=== PATIENT | female | born 1995 | race Caucasian/White ===

== ENCOUNTER 2023-05-08 14:12 | Outpatient (OUT) | payer MEDICAID, SELFPAY ==
--- NOTE | 2023-05-08 | XR_ITS ---
[facility] [place] [id number] Patient Name: CHARY HDEZ MRN: [id number] date: 1995 Sex: F Assigned Patient Location: [facility] Current Patient Location: Accession/Order Number: [id number] Exam Date: 05/08/2023 14:35 Report Date: 05/10/2023 18:12 At the request of: MATHEW PHELPS Procedure: XR foot LT min 3V EXAM: XR foot LT min 3V HISTORY: LEFT FOOT F/U IMAGING COMPARISON: 04/13/2023 FINDINGS/IMPRESSION: 1. Oblique fracture of the fifth metatarsal with mild displacement, alignment similar as compared to the prior exam from 04/13/2023. 2. No significant joint degeneration. 3. No ankle joint effusion. Electronically authenticated by: CASSIE SEXTON Date: 05/10/2023 18:12
--- OUTSIDE RECORDS SUMMARY | 2023-05-08 14:25 | XMS_ITS | CCD ---
Author Name Unknown Address [address] [place] [address] Organization [facility] Providers Care Library Media Specialist Name Role Phone CAMILLE, DR WISE Consulting Unavailable KARASIK, DR WISE Attending Unavailable KARASIK, DR WISE Admitting Unavailable REQUEST, DR ADRIAN LISTED Primary Care Unavaila ble SCOTT, DR DELANEY Coulter Attending Unavailable SCOTT, DR DELANEY Coulter Admitting Unavailable SCOTT, DR DELANEY Coulter Consulting Unavailable MISC, DR LAKE Primary Care Unavailable SCOTT, DR DELANEY Coulter Attending Unavailable SCOTT, DR DELANEY Coulter Admitting Unavailable SCOTT, DR DELANEY Coulter Consulting Unavailable MISC, DR LAKE Primary Care Unavailable KARASIK, DR WISE Procedure Practitioner Unava ilable KARASIK, DR WISE Consulting Unavailable KARASIK, DR WISE Attending Unavailable SHAYY THOMAS Admitting Unavailable MISC, DR LAKE Primary Care Unavailable ROMIE, DR JEREZ Consulting Unavailable AGUBOSIMIKE Consulting Unavailable PAY, DR BUENO Admitting Unavailable PAY, DR BUENO Attending Unavailable MISC, DR LAKE Primary Care Unavailable KARASIK, DR WISE Admitting Unavailable KARASIK, DR WISE Consulting Unavailable KARASIK, DR WISE Attending Unavailable REQUEST, DR ADRIAN LISTED Primary Care Unavaila BETTY Schaffer Attending Unavailable BETTY MARTIN Admitting Unavailable WEST, DR HEATHER Rob Consulting Unavailable MISC, DR LAKE Primary Care Unavailable BETTY MARTIN Consulting Unavailable MISC, DR LAKE Primary Care Unavailable MEHUL MORSE Attending Unavailable MEHUL MORSE Admitting Unavailable ANATOLY, DR HEATHER Rob Consulting Unavailable MEHUL MORSE Consulting Unavailable MEHUL MORSE Attending Unavailable MEHUL MORSE Admitting Unavailable ANATOLY, DR HEATHER Rob Consulting Unavailable MISC, DR LAKE Primary Care Unavailable MEHUL MORSE Consulting Unavailable NONE, XXXX Primary Care Physician Unavailab Tyler Roman Attending Unavailable Allergies Allergy Classification Reported Allergen(s) Allergy Type Date of Onset Reaction(s) Facility (1 source) No Known Medication Allergies; Translations: [No Known Medication Allergies] Propensity to adverse reactions (disorder) [facility] Repository Problems Active Problems Problem Classification Problem Date Documented Date Episodic/Chronic Fracture of lower limb (9 sources) Unspecified fracture of left toe(s), initial encounter for closed fracture; Translations: [Displaced fracture of distal phalanx of left great toe, initial encounter for closed fracture] Onset: 12-22-2020 Episodic Substance-related disorders (2 sources) Nicotine dependence, cigarettes, uncomplicated; Translations: [Smoker] Onset: 10-16-2020 04-13-2023 Chronic Comment on above: Added secondary to d ocumentation in Social History. Unclassified (4 sources) CONTACT W/AND (SUSP) EXPOS COVID-19; Translations: [CONTACT W/AND (SUSP) EXPOS COVID-19] Onset: 10-16-2020 Past or Other Problems Problem Classification Problem Date Documented Date Episodic/Chronic Immunizations and screening for infectious disease (1 source) Encounter for screening for infections with a predominantly sexual mode of transmission; Translations: [ENC SCREEN INFECTIONS SEXL TRANSMS] Onset: 09-18-2020 Episodic Other complications of ; puerperium affecting management of mother (1 source) Smoking (tobacco) complicating childbirth; Translations: [SMOKING TOBACCO COMP CHILDBIRTH] Onset: 10-16-2020 Episodic Other female genital disorders (1 source) Other specified noninflammatory disorders of vagina; Translations: [OTH SPEC NONINFLAMMATORY D/O VAGINA] Onset: 09-18-2020 Episodic Other and delivery including normal (3 sources) Encounter for supervision of normal , unspecified, third trimester; Translations: [Single live ] Onset: 10-05-2020 Episodic Other screening for suspected conditions (not mental disorders or infectious disease) (8 sources) Encounter for screening for Streptococcus B; Translations: [Encounter for screening for diabetes mellitus] Onset: 07-07-2020 Episodic Residual codes; unclassified (4 sources) Procedure and treatment not carried out due to patient leaving prior to being seen by health care provider; Translations: [PROC AND TX NOT CARRIED OUT PT LEAVE] Onset: 12-22-2020 Episodic Residual codes; unclassified (1 source) 39 weeks gestation of ; Translations: [39 WEEKS GESTATION OF ] Onset: 10-16-2020 Episodic Unclassified (1 source) CONTACT W/AND (SUSP) EXPOS COVID-19; Translations: [CONTACT W/AND (SUSP) EXPOS COVID-19] Onset: 05-23-2021 Results Test Name Value Interpretation Reference Range Facil ity ED Note-Physicianon 04-24-20 ED Note-Physician Basic Information Time Seen: Kamar FLORES, Perez Fisher 04/13/2023 18:47 Chief Complaint left foot pain from fall. using crutches History of Present Illness A 28-year-old female reports to the emergency department with chief complaint of left foot pain. Reports that she thinks that she broke her foot. Reports that she was playing with her kids, and fell on to her left foot, and her body weight fell on it. States that she did have a walk on it. Reports to have about 630 this evening. Denies any fevers chills nausea or vomiting. States he has not taken anything for pain. Cannot place weight on it. Is using crutches. Review of Systems A 10 point review of systems is negative except as noted above. Medical and Surgical History: Reviewed and noted Social history: Lives at home Family History: Reviewed. Tobacco: Denies Physical Exam Vitals & Measurements T: 36.8 ?C(Oral) HR: 96(Peripheral) RR: 18 BP: 130/82 SpO2: 97% HT: 160.02 cm WT: 70 kg BMI: 27.34 General: The patient appears well and in no apparent distress. Patient is resting comfortably in chair. Afebrile Skin: Warm, dry, no pallor noted. Ecchymosis located on the lateral aspect of the left foot. Head: Normocephalic, atraumatic Neck: No JVD Eye: PERRLA, EOMI ENT: Moist mucus membranes Cardiovascular: Regular rate normal peripheral perfusion. Pedal pulses +2 bilaterally. Cap refill is brisk. Respiratory: No respiratory distress no accessory muscle use no obvious audible wheezing Chest Wall: no deformity Musculoskeletal: Limited range of motion of left foot due to pain. There is tenderness along the fourth and fifth metatarsal aspect of the left foot. GI: No obvious distention Neurological: A&O moves all extremities equal strength and symmetry Psychiatric: Cooperative and appropriate Medical Decision Making MEDICAL DECISION MAKING Number and Complexity of Problems Differential Diagnosis: [] MDM Data External documents reviewed: [] My EKG interpretation: [] My CT interpretation: [] My X-ray interpretation: Reviewed My Ultrasound interpretation: [] Decision rules/scores evaluated: [] Discussed with: [] Treatment and Disposition ED Course: 28-year-old female reports to the emergency department with chief complaint of a fall, and foot pain. Reports that she was playing with her kids, when she fell onto her left foot. Denies any other injury. Reports patient having to walk on it. Believes that she broke her foot. On physical exam left foot is neurovascularly intact distally. Tenderness located on the fourth and fifth metatarsal bones. Due to concerns we did do an x-ray. X-ray was positive for fracture of fifth metatarsal bone. Due to this, patient was placed in a postop shoe. She did have crutches that she was always using. Discussed ultimately she needs follow-up with podiatry. Patient was understanding. Continue to rest, ice, compress, and elevate your affected joint to relieve inflammation and swelling. You may also take ibuprofen and Tylenol to help with pain. Follow-up with your primary care provider in 3 to 5 days. If symptoms worsen, do not improve, or new symptoms arise please report back to emergency department for further evaluation. The patient was understanding and agreeable to plan moving forward. Shared decision making: [] Code status: [] Assessment/Plan Fracture of fifth metatarsal bone of left foot (S92.352A: Displaced fracture of fifth metatarsal bone, left foot, initial encounter for closed fracture) Orders: ibuprofen, 800 mg = 1 tab(s), Tab, Oral, Once, Stop date 04/13/23 19:21:00 EST, STAT, Start date 04/13/23 19:21:00 EST, 04/13/23 19:21:00 EST Apply Post-Op Shoe XR Ankle 3+ Views Left XR Foot 3+ Views Left Medications Administered Given ibuprofen 800 mg Tab, 800 mg, Oral Disposition Plan Patient Discharge Condition Stable Discharge Disposition To home Discharge Prescription List Prescriptions No active prescription medications Follow-up With When Contact Information Aurelio Solares In 3 days 04/16/2023 EST [facility] [address] [place] [address]- [facility]: c/o [address] [place] [address]- Additional Instructions: You may follow-up with podiatry for further evaluation of your left foot fracture. Continue to be nonweightbearing. Continue to rest, ice, compress, and elevate your affected joint to relieve inflammation and swelling. You may also take ibuprofen and Tylenol to help with pain. Patient Education Metatarsal Fracture Rehab Metatarsal Fracture Attestation Patient seen and evaluated by the physician drafter assistant. Attending physician was present in the emergency department and supervised care. This visit was performed by both the physician and an APC. I performed all aspects of the MDM as documented. This report was transcribed using voice (more content not included)... [facility] Comment on above: Result Comment: Elec tronically Signed By: Perez Galvin PA-C\.br\Date and Time Signed: 04/13/23 21:29 EST\.br\Electronically Co-Signed By: Armaan Catherine MD\.br\Date and Time Co-Signed: 04/24/23 07:43 EST XR Ankle 3+ Views Lefton XR Ankle 3+ Views Left Exam Date/Time: 04/13/2023 19:47 EST Reason for Exam: Fall Report IMPRESSION: NO EVIDENCE OF A FRACTURE OR OTHER BONE ABNORMALITY IN THE LEFT ANKLE. CLINICAL HISTORY: Fall COMPARISON: None available. FINDINGS: AP, lateral and oblique views of the left ankle demonstrates no fracture, dislocation or other bone abnormality. Ordering Provider: Perez Galvin FINAL REPORT Dictated: 04/14/2023 9:00 am Micheal Mackey MD Signed (Electronic Signature): 04/14/2023 9:00 am Signed by: Micheal Mackey MD Transcribed by: JEFFREY Technologist: VIKY Technical Comments Radiation Dose: Ka,r in mGy = n/a DAP = n/a [facility] XR Foot 3+ Views Lefton XR Foot 3+ Views Left Exam Date/Time: 04/13/2023 19:47 EST Reason for Exam: Fall Report IMPRESSION: COMPLETE FRACTURE, LEFT FIFTH METATARSAL. CLINICAL HISTORY: Fall COMPARISON: None available. FINDINGS: AP, lateral and oblique views of the left foot. Complete, oblique, minimally displaced, extra-articular fracture left fifth mid metatarsal. Mild hammertoe deformity, second through fifth digits. Ordering Provider: Perez Galvin FINAL REPORT Dictated: 04/14/2023 9:00 am Micheal Mackey MD Signed (Electronic Signature): 04/14/2023 9:00 am Signed by: Micheal Makcey MD Transcribed by: JEFFREY Technologist: VIKY Technical Comments Radiation Dose: Ka,r in mGy = n/a DAP = n/a Normal [facility] Consent for Treatmenton Consent for Treatment [id number] .[id number] Normal [facility] Discharge Instructionson Discharge Instructions [id number] .[id number] Normal [facility] ED Clinical Summaryon 2022 ED Clinical Summary [place] [id number] ED Clinical Summary Person Information Name: CHARY HDEZ/[facility] Age: 28 Years : 1995 Sex: Female Language: Nigerian PCP: NONE, XXXX Marital Status: Single Phone: [phone] Visit Id: Visit Reason: Foot injury - Minor; LEFT FT - POSSIBLE FRACTURE Speciality: Acuity: 4 Enc Type: Emergency Med Service: Emergency Arrival: 04/13/2023 18:39:59 Discharge: 04/13/2023 20:17:57 LOS: 000 01:38 Checkin: 04/13/2023 18:39:59 Checkout: 04/13/2023 20:17:57 Dispo Type: Home (Routine DC) EVENTS: Event Name Event Status Request Date/Time Start Date/Time Complete Date/Time Arrive Complete 04/13/2023 18:39:59 04/13/2023 18:39:59 04/13/2023 18:39:59 Document Home Meds Request 04/13/2023 18:39:59 Triage Complete 04/13/2023 18:39:59 04/13/2023 18:54:39 04/13/2023 18:54:39 Dr Exam Complete 04/13/2023 18:47:44 04/13/2023 18:47:44 04/13/2023 18:47:44 Registration Complete 04/13/2023 18:47:44 04/13/2023 18:50:10 04/13/2023 19:25:22 Bed Assign Complete 04/13/2023 18:50:10 04/13/2023 18:50:10 04/13/2023 18:50:10 RN Exam Complete 04/13/2023 18:50:10 04/13/2023 18:53:39 04/13/2023 18:53:39 Dr Exam Complete 04/13/2023 18:57:24 04/13/2023 18:57:24 04/13/2023 18:57:24 X-Ray Complete 04/13/2023 19:02:47 04/13/2023 19:14:54 04/13/2023 19:47:06 X-Ray Complete 04/13/2023 19:03:17 04/13/2023 19:14:54 04/13/2023 19:47:06 Meds Admin Complete 04/13/2023 19:21:21 04/13/2023 19:31:18 Reg Complete Request 04/13/2023 19:25:22 Reg Bed Request Complete 04/13/2023 19:25:22 04/13/2023 19:25:22 04/13/2023 19:25:22 Wet Read Request 04/13/2023 19:47:06 Patient Care Request 04/13/2023 20:02:49 Discharge Complete 04/13/2023 20:03:53 04/13/2023 20:18:04 04/13/2023 20:18:04 Transfer Complete 04/13/2023 20:18:04 04/13/2023 20:18:04 04/13/2023 20:18:04 ADDRESS: [place] [phone] PHYS DOC NOTES: MEDICAL INFORMATION: Prescriptions Given: PATIENT EDUCATION INFORMATION: Instructions: Metatarsal Fracture Rehab; Metatarsal Fracture Follow up: With: Address: When: Aurelio Solares [facility], [address] [place] [address] [facility]/o [facility], [address] [place] [address], [place] [address] In 3 days 04/16/2023 Comments: You may follow-up with podiatry for further evaluation of your left foot fracture. Continue to be nonweightbearing. Continue to rest, ice, compress, and elevate your affected joint to relieve inflammation and swelling. You may also take ibuprofen and Tylenol to help with pain. DIAGNOSIS: Fracture of fifth metatarsal bone of left foot Normal [facility] ED Patient Education Noteon 04-13-2023 ED Patient Education Note Orthopedics Metatarsal Fracture Rehab After you break one of the long bones in your foot (metatarsal fracture), it is important to regain your flexibility, coordination, strength, and balance. This is especially important if you had a cast or boot. Ask your health care provider or physical therapist when you can start doing exercises at home. If doing any of these exercises causes pain, stop and contact your health care provider or physical therapist. Stretching exercises Exercise A: towel stretch 1. Sit on the floor with your legs straight out in front of you. 2. Loop a towel around the ball of your injured foot. 3. Use both hands to pull the ends of the towel, stretching your toes and foot toward your body. You should feel a stretch in the muscle in the back of your lower leg (calf). 4. Hold the stretch for 30 seconds. 5. Repeat times. Complete this exercise times a day. Exercise B: ankle alphabets 1. Sit with your injured foot raised off the ground (elevated). You can support your leg on pillows or on a footstool. Make sure your foot has room to move freely. 2. Move your injured foot to trace each letter of the alphabet in the air. Keep your hip and knee still. Make the letters as large as you can without pain. 3. Go through all of the letters from A to Z. 4. Repeat times. Complete this exercise times a day. Exercise C: calf stretch 1. Stand with both hands against a wall for support. 2. Bring your injured foot out straight behind you. Keep the front leg bent at the knee. 3. Keep the knee of your back leg straight and keep your heel on the floor. 4. Shift your weight toward the wall, making sure to keep the heel of your back leg down on the floor. You should feel a stretch in the calf of your back leg. 5. Hold the stretch for 30 seconds. 6. Repeat times. Complete this exercise times a day. You can also do this exercise with the knee of your back leg slightly bent for a deep calf stretch. Repeat the same steps but with your knee bent. Strengthening exercises Exercise A: marble pickup 1. Sit in a chair. Put 20 marbles on the floor in front of you. Put a bowl or cup on the floor near the marbles. 2. Use the toes of your injured foot to strip picker each marble one by one and place them in the bowl or cup. 3. Repeat times. Complete this exercise times a day. If you have only one marble, place two washcloths on the floor and move the marble between the washcloths. Exercise B: towel curls 1. Sit in a chair and place a small towel on the floor in front of you. 2. Use the toes of your injured foot to grab the towel and pull it toward you. Keep going until you have pulled the whole towel under your foot. 3. Repeat times. Complete this exercise times a day. To make this exercise more difficult, put a small weight, such as a filled water bottle or can of food, at the far end of the towel. Exercise C: resistance band calf strengthening 1. Sit on the floor or on your bed with your legs straight out in front of you. 2. Loop a resistance band around the ball of your injured foot. 3. Hold the free ends of the band with both hands. 4. Push down on the band with your foot, away from your body. Slowly release. 5. Repeat times. Complete this exercise times a day. Exercise D: resistance band samuel strengthening 1. Sit in a chair with your feet flat on the floor. 2. Loop a resistance band around your injured foot, just below your toes. 3. Bring the loose ends toward your other foot. Pull the band tight and step on it with your non-injured foot to hold it. 4. Keeping your heel down, lift your injured toes and foot up toward your samuel. Slowly release. 5. Repeat times. Complete this exercise times a day. Exercise E: calf raises 1. Stand behind a chair or at your countertop and use your hands to support you. 2. Lift up onto your toes and then slowly lower back down. 3. Repeat times. Complete this exercise times a day. To increase difficulty, lift your non-injured foot off the ground and rise up just on your injured foot. You can also perform this exercise with your toes and the ball of your foot on a step, with your heels over the step. Lift and lower as far as you can without pain. Balance exercises Exercise A: single leg stand 1. Stand close to a countertop or doorframe to hold onto if needed. Stand only on your injured foot. Don't let your big toe lift. 2. Hold this position for as long as you can. Repeat until you reach minutes total. To increase difficulty, close your eyes or stand on a soft surface like a pillow or couch cushion. Exercise B: star taps 1. Stand close to a countertop to hold onto if needed. Stand only on your (more content not included)... Normal [facility] ED Patient Summaryon 023 ED Patient Summary [address] [address] Patient Discharge Instructions Person Information Name: CHARY HDEZ Age: 28 Years Arrival Date: 04/13/2023 18:39:59 Discharge Diagnosis: Fracture of fifth metatarsal bone of left foot Primary Care Physician: NONE, XXXX Provider Information Primary Provider: Tyler Qiu DO Advanced Abatement Worker:Kaitlyn The exam and treatment you received in the Emergency Department were for an urgent problem and are not intended as complete care. It is important that you follow up with a doctor, nurse practitioner, or physician?s drafter assistant for ongoing care. If your symptoms become worse or you do not improve as expected and you are unable to reach your usual health care provider, you should return to the Emergency Department. We are available 24 hours a day. CHARY HDEZ has been given the following list of patient education materials, prescriptions and follow-up instructions: Follow-up Instructions: With: Address: When: Aurelio Solares [facility], [address] [place] [address], [place] [address] [facility]: c/o [facility], [address] [place] [address], [place] [address] In 3 days 04/16/2023 Comments: You may follow-up with podiatry for further evaluation of your left foot fracture. Continue to be nonweightbearing. Continue to rest, ice, compress, and elevate your affected joint to relieve inflammation and swelling. You may also take ibuprofen and Tylenol to help with pain. In the event that this physician does not participate in your insurance network, please consult with your insurance company to find a nearby participating provider. Patient Education Materials: Metatarsal Fracture Rehab; Metatarsal Fracture A MESSAGE TO ALL PATIENTS REGARDING OPIOIDS PRESCRIPTION OPIOIDS: WHAT YOU NEED TO KNOW Prescription opioids can be used to help relieve rvvokguq-ml-eyuaia pain and are often prescribed following a surgery or injury, or for certain health conditions. These medications can be an important part of the treatment but also come with serious risks. It is important to work with your healthcare provider to make sure you are getting the safest, most effective care. WHAT ARE THE RISKS AND SIDE EFFECTS OF OPIOID USE? Prescription opioids carry serious risks of addiction and overdose, especially with prolonged use. An opioid overdose, often marked by slowed breathing, can cause sudden . The use of prescription opioids can have a number of side effects as well, even when taken as directed: ? Tolerance?meaning you might need to take more of the medication for the same pain relief ? Physical dependence?meaning you have symptoms of withdrawal when a medication is stopped ? Increased sensitivity to pain ? Constipation ? Nausea, vomiting, and dry mouth ? Sleepiness and dizziness ? Confusion ? Depression ? Low levels of testosterone that can result in lower sex drive, energy, and strength ? Itching and sweating RISKS ARE GREATER WITH: ? History of drug misuse, substance use disorder, or overdose ? Mental health conditions (such as depression or anxiety) ? Sleep apnea ? Older age (65 years and older) ? Avoid alcohol while taking prescription opioids. Also, unless specifically advised by your health care provider, medications to avoid include: ? Benzodiazepines (such as Xanax or Valium) ? Muscle relaxants (such as Soma or Flexeril) ? Hypnotics (such as Ambien or Lunesta) ? Other prescription opioids KNOW YOUR OPTIONS Talk to your health care provider about ways to manage your pain that don?t involve prescription opioids. Some of these options may actually work better and have fewer risks and side effects. Options may include: ? Pain relievers such as acetaminophen, ibuprofen, and naproxen ? Some medication that are also used for depression or seizures ? Physical therapy and exercise ? Cognitive behavioral therapy, a psychological, goal-directed approach, in which patients learn how to modify physical, behavioral, and emotional triggers of pain and stress. IF YOU ARE PRESCRIBED OPIOIDS FOR PAIN: ? Never take opioids in greater amounts or more often than prescribed. ? Follow up with your primary health care provider. o Work together to create a plan on how to manage your pain. o Talk about ways to help manage your pain that don?t involve prescription opioids. o Talk about any and all concerns and side effects. ? Help prevent misuse and abuse o Never sell or share prescription opioids. o Never use another person?s prescription opioids. ? Store prescription opioids in a secure place and out of reach of others (this may include visitors, children, friends, and family). ? Safely dispose of unused prescription opioids: Find your community dr (more content not included)... Normal [facility] Covid-19 PCR (CVDTB)on 05-12 SARS-CoV-2 (COVID-19) RNA JUSTEN+probe Ql (Unsp spec) Not detected Normal NOT DETECTED [facility] Comment on above: Result Comment: This test is not yet approved or cleared by the [place] FDA. When there are no FDA-approved or cleared tests available, and other criteria are met, FDA can make tests available under an emergency access mechanism called an Emergency Use Authorization (EUA). The EUA for this test is supported by the [employer] of Health and Human Service's (HHS's) declaration that circumstances exist to justify the emergency use of in vitro diagnostics for the detection and/or diagnosis of the virus that causes COVID-19. This EUA will remain in effect (meaning this test can be used) for the duration of the COVID-19 declaration justifying emergency of IVDs, unless it is terminated or revoked by FDA (after which the test may no longer be used). When diagnostic testing is negative, the possibility of a false negative should be considered in the context of a patient's recent exposures and the presence of clinical signs and symptoms consistent with SARS-CoV-2. Performed By: #### [facility] #### [facility] [address] [place] [address] Dr. Candelaria Ivan Covid-19 PCR (CVDTB)on 02-10 SARS-CoV-2 (COVID-19) RNA JUSTEN+probe Ql (Unsp spec) Not detected Normal NOT DETECTED [facility] Comment on above: Result Comment: This test is not yet approved or cleared by the [place] FDA. When there are no FDA-approved or cleared tests available, and other criteria are met, FDA can make tests available under an emergency access mechanism called an Emergency Use Authorization (EUA). The EUA for this test is supported by the [place] of Health and Human Service's (HHS's) declaration that circumstances exist to justify the emergency use of in vitro diagnostics for the detection and/or diagnosis of the virus that causes COVID-19. This EUA will remain in effect (meaning this test can be used) for the duration of the COVID-19 declaration justifying emergency of IVDs, unless it is terminated or revoked by FDA (after which the test may no longer be used). When diagnostic testing is negative, the possibility of a false negative should be considered in the context of a patient's recent exposures and the presence of clinical signs and symptoms consistent with SARS-CoV-2. Performed By: #### C VDTB #### [facility] [address] [place] [address] Dr. Candelaria Ivan CBC AUTO DIFFon 10-06-2020 BASO # 0.1 103/ul Normal 0.0-0.1 [facility] Comment on above: Performed By: #### C BC #### [facility] [address] [place], [place] [id number] Brittany Eulalia Basophils/100 WBC (Bld) 0.4 % Normal 0.2-2.0 [facility] Comment on above: Performed By: #### C BC #### [facility] [address] [place] [address] Brittany Eulalia EO # 0.1 103/ul Normal 0.0-0.7 [facility] Comment on above: Performed By: #### C BC #### [facility] [address] [place] [address] Brittany Eulalia Eosinophils/100 WBC (Bld) 0.5 % Critically low 0.9-7.0 [facility] Comment on above: Performed By: #### C BC #### [facility] [address] [place], [place] [id number] Brittany Eulalia Erythrocyte distribution width (RBC) [Ratio] 13.2 % Normal 11.0-15.0 [facility] Comment on above: Performed By: #### C BC #### [facility] [address] [place], [place] [id number] Brittany Eulalia Hematocrit (Bld) [Volume fraction] 32.7 % Critically low 36.0-48.0 [facility] Comment on above: Performed By: #### C BC #### [facility] [address] [place] [address] Brittany Eulalia Hemoglobin (Bld) [Mass/Vol] 11.1 g/dL Critically low 12.0-16.0 [facility] Comment on above: Performed By: #### C BC #### [facility] [address] [id number] [place]anywinston Esteban IG # 0.26 10e3/ul Critically high 0.00-0.03 [facility] Comment on above: Performed By: #### C BC #### [facility] [address] [id number] Brittany Eulalia IG % 1.7 % Critically high 0.0-0.5 [facility] Comment on above: Performed By: #### C BC #### [facility] [address] [id number] Brittany Eulalia LYMPH # 2.5 103/ul Normal 1.2-3.8 [facility] Comment on above: Performed By: #### C BC #### [facility] [address] [place], [place] [id number] Brittany Esteban Lymphocytes/100 WBC (Bld) 16.7 % Critically low 20.5-60.0 [facility] Comment on above: Performed By: #### C BC #### [facility] [address] [place], [place] [id number] Brittany Esteban MANUAL DIFF REQ NO Normal [facility] Comment on above: Performed By: #### C BC #### [facility] [address] [place], [place] [address] [place]anywinston Esteban MCH (RBC) [Entitic mass] 30.9 pg Normal 26.7-34.0 [facility] Comment on above: Performed By: #### C BC #### [facility] [address] [place], [place] [id number] [place]anywinston Esteban MCHC (RBC) [Mass/Vol] 33.9 g/dL Normal 29.9-35.2 [facility] Comment on above: Performed By: #### C BC #### [facility] [address] [id number] Brittany Eulalia MCV (RBC) [Entitic vol] 91.1 fL Normal 81.0-99.0 [facility] Comment on above: Performed By: #### C BC #### [facility] [address] [place], [place] [address] Brittany Eulalia MONO # 1.1 103/ul Critically high 0.3-0.8 [facility] Comment on above: Performed By: #### C BC #### [facility] [address] [place], [place] [address] Brittany Eulalia Monocytes/100 WBC (Bld) 7.2 % Normal 1.7-12.0 [facility] Comment on above: Performed By: #### C BC #### [facility] [address] [id number] Brittany Eulalia NEUT # 11.1 103/ul Critically high 1.4-6.5 [facility] Comment on above: Performed By: #### C BC #### [facility] [address] [id number] Brittany Eulalia Neutrophils/100 WBC (Bld) 73.5 % Normal 43.0-75.0 [facility] Comment on above: Performed By: #### C BC #### [facility] [address] [place], [place] [address] Brittany Eulalia Platelet mean volume (Bld) [Entitic vol] 10.1 fL Normal 9.5-13.5 [facility] Comment on above: Performed By: #### C BC #### [facility] [address] [place], [place] [address] Brittany Eulalia PLT 157 103/ul Normal 150-450 [facility] Comment on above: Performed By: #### C BC #### [facility] [address] [id number] Brittany Eulalia RBC 3.59 106/ul Critically low 4.20-5.40 [facility] Comment on above: Performed By: #### C BC #### [facility] [address] [id number] Brittany Eulalia WBC 15.2 103/ul Critically high 4.0-11.0 [facility] Comment on above: Performed By: #### C BC #### [facility] [address] [place], [place] [address] Brittany Eulalia CBC AUTO DIFFon 10-05-2020 BASO # 0.0 103/ul Normal 0.0-0.1 [facility] Comment on above: Performed By: #### C BC #### [facility] [address] [id number] Brittany Esteban Basophils/100 WBC (Bld) 0.3 % Normal 0.2-2.0 [facility] Comment on above: Performed By: #### C BC #### [facility] [address] [address] Brittany Eulalia EO # 0.0 103/ul Normal 0.0-0.7 [facility] Comment on above: Performed By: #### C BC #### [facility] [address] [id number] Brittany Esteban Eosinophils/100 WBC (Bld) 0.3 % Critically low 0.9-7.0 [facility] Comment on above: Performed By: #### C BC #### [facility] [address] [place] [address] Brittany Esteban Erythrocyte distribution width (RBC) [Ratio] 12.8 % Normal 11.0-15.0 [facility] Comment on above: Performed By: #### C BC #### [facility] [address] [place] [address] Brittany Esteban Hematocrit (Bld) [Volume fraction] 34.3 % Critically low 36.0-48.0 [facility] Comment on above: Performed By: #### C BC #### [facility] [address] [address] [place]any[place] Esteban Hemoglobin (Bld) [Mass/Vol] 11.7 g/dL Critically low 12.0-16.0 [facility] Comment on above: Performed By: #### C BC #### [facility] [address] [id number] Brittany Eulalia IG # 0.17 10e3/ul Critically high 0.00-0.03 [facility] Comment on above: Performed By: #### C BC #### [facility] [address] [place], [place] [address] [place]any[place] Esteban IG % 1.2 % Critically high 0.0-0.5 [facility] Comment on above: Performed By: #### C BC #### [facility] [address] [place], [place] [address] Brittanywinston Esteban LYMPH # 1.7 103/ul Normal 1.2-3.8 [facility] Comment on above: Performed By: #### C BC #### [facility] [address] [place] [address] Brittany Esteban Lymphocytes/100 WBC (Bld) 12.0 % Critically low 20.5-60.0 [facility] Comment on above: Performed By: #### C BC #### [facility] [address] [place] [address] Brittany Esteban MANUAL DIFF REQ NO Normal [facility] Comment on above: Performed By: #### C BC #### [facility] [address] [place] [address] Brittany Esteban MCH (RBC) [Entitic mass] 30.7 pg Normal 26.7-34.0 [facility] Comment on above: Performed By: #### C BC #### [facility] [address] [place] [address] Brittany Esteban MCHC (RBC) [Mass/Vol] 34.1 g/dL Normal 29.9-35.2 [facility] Comment on above: Performed By: #### C BC #### [facility] [address] [place] [address] Brittany Esteban MCV (RBC) [Entitic vol] 90.0 fL Normal 81.0-99.0 [facility] Comment on above: Performed By: #### C BC #### [facility] [address] [place], [place] [address] Brittanywinston Mcneillen MONO # 1.1 103/ul Critically high 0.3-0.8 [facility] Comment on above: Performed By: #### C BC #### [facility] [address] [place], [place] [address] Brittany Esteban Monocytes/100 WBC (Bld) 7.6 % Normal 1.7-12.0 [facility] Comment on above: Performed By: #### C BC #### [facility] [address] [id number] Brittany Esteban NEUT # 11.4 103/ul Critically high 1.4-6.5 [facility] Comment on above: Performed By: #### C BC #### [facility] [address] [id number] Brittany Esteban Neutrophils/100 WBC (Bld) 78.6 % Critically high 43.0-75.0 [facility] Comment on above: Performed By: #### C BC #### [facility] [address] [place], [place] [address] Brittany Esteban Platelet mean volume (Bld) [Entitic vol] 10.0 fL Normal 9.5-13.5 [facility] Comment on above: Performed By: #### C BC #### [facility] [address] [place], [place] [address] Brittany Esteban PLT 175 103/ul Normal 150-450 [facility] Comment on above: Performed By: #### C BC #### [facility] [address] [place], [place] [address] Brittany Esteban RBC 3.81 106/ul Critically low 4.20-5.40 [facility] Comment on above: Performed By: #### C BC #### [facility] [address] [place], [place] [address] Brittany Esteban WBC 14.5 103/ul Critically high 4.0-11.0 [facility] Comment on above: Performed By: #### C BC #### [facility] [address] [place], [place] [address] Brittany Esteban Covid-19 PCR (CVDTB)on 09-10 SARS-CoV-2 (COVID-19) RNA JUSTEN+probe Ql (Unsp spec) Not detected Normal NOT DETECTED [facility] Comment on above: Result Comment: This test is not yet approved or cleared by the [place] FDA. When there are no FDA-approved or cleared tests available, and other criteria are met, FDA can make tests available under an emergency access mechanism called an Emergency Use Authorization (EUA). The EUA for this test is supported by the [place] of Health and Human Service's (HHS's) declaration that circumstances exist to justify the emergency use of in vitro diagnostics for the detection and/or diagnosis of the virus that causes COVID-19. This EUA will remain in effect (meaning this test can be used) for the duration of the COVID-19 declaration justifying emergency of IVDs, unless it is terminated or revoked by FDA (after which the test may no longer be used). When diagnostic testing is negative, the possibility of a false negative should be considered in the context of a patient's recent exposures and the presence of clinical signs and symptoms consistent with SARS-CoV-2. Performed By: #### C VDTBH #### [facility] [address] [place] [address] Brittany Eulalia DRUG SCREEN RAPID (URINE)on 10-05-2020 AMP Negative Normal NEGATIVE [facility] Comment on above: Performed By: #### D RUGRPD #### [facility] [address] [place] [address] Brittany Eulalia BAR Negative Normal NEGATIVE [facility] Comment on above: Performed By: #### D RUGRPD #### [facility] [address] [place] [address] Brtitany Eulalia BUP Negative Normal NEGATIVE [facility] Comment on above: Performed By: #### D RUGRPD #### [facility] [address] [place] [address] Brittany Eulalia BZO Negative Normal NEGATIVE [facility] Comment on above: Performed By: #### D RUGRPD #### [facility] [address] [place] [address] Brittany Eulalia ROD Negative Normal NEGATIVE [facility] Comment on above: Performed By: #### D RUGRPD #### [facility] [address] [place] [address] Brittany Eulalia CUT-OFFS SEE BELOW Normal [facility] Comment on above: Result Comment: AMP (Amphetamine): 500ng/mL, BAR (Barbituates): 200 ng/mL, BZO (Benzodiazepines): 150 ng/mL, BUP (Buprenorphine): 10 ng/mL, ROD (Cocaine): 150 ng/mL, mAMP (Methamphetamine): 500 ng/mL, MTD (Methadone): 200 ng/mL, OPI (Opiates): 100 ng/mL, OXY (Oxycodone): 100 ng/mL, PCP (Phencyclidine): 25 ng/mL, PPX (Propoxyphene): 300 ng/mL, THC (Cannabinoids): 50 ng/mL, TCA (Trycyclic Antidepressants): 300 ng/mL Performed By: #### D RUGRPD #### [facility] [address] [place] [address] DRUG CUT HEADER DRUG CLASS TEST SYSTEM CUT-OFF CONCENTRATIONS ARE FOLLOWS: Normal [facility] Comment on above: Performed By: #### D RUGRPD #### [facility] [address] [place] [address] Brittany Eulalia mAMP Negative Normal NEGATIVE [facility] Comment on above: Performed By: #### D RUGRPD #### [facility] [address] [place] [address] Brittany Eulalia MTD Negative Normal NEGATIVE [facility] Comment on above: Performed By: #### D RUGRPD #### [facility] [address] [place] [address] Brittany Eulalia OPI Negative Normal NEGATIVE [facility] Comment on above: Performed By: #### D RUGRPD #### [facility] [address] [place] [address] Brittany Eulalia OXY Negative Normal NEGATIVE [facility] Comment on above: Performed By: #### D RUGRPD #### [facility] [address] [place] [address] Brittany Eulalia PCP Negative Normal NEGATIVE [facility] Comment on above: Performed By: #### D RUGRPD #### [facility] [address] [place] [address] Brittany Eulalia PPX Negative Normal NEGATIVE [facility] Comment on above: Performed By: #### D RUGRPD #### [facility] [address] [place] [address] Brittany Eulalia TCA Negative Normal NEGATIVE [facility] Comment on above: Performed By: #### D RUGRPD #### [facility] [address] [place] [address] Brittany Esteban THC Negative Normal NEGATIVE [facility] Comment on above: Performed By: #### D RUGRPD #### [facility] [address] [place] [address] Brittany Esteban RAPID COVID-19 ANTIGENon EUA Statement SEE BELOW Normal [facility] Comment on above: Result Comment: This test has not been FDA cleared or approved, but has been authorized by the FDA under an Emergency Use Authorization (EUA) for use by authorized laboratories certified under CLIA that meet the requirements to perform moderate or high complexity testing. This test has been authorized only for the detection of proteins from SARS-CoV-2, not for any other viruses or pathogens. The emergency use of this test is authorized for the duration of the declaration that circumstances exist justifying the authorization of emergency use of in vitro diagnostic tests for detection and/or diagnosis of Covid-19 under section 564(b)(1) of the Act, 21 U.S.C. 360bbb-3(b)(1), unless the declaration is terminated or authorization is revoked sooner. Performed By: #### C BC #### [facility] [address] [place] [address] [facility] ([facility]) RNA JUSTEN+probe Ql (Unsp spec) Negative Normal NEGATIVE [facility] Comment on above: Result Comment: Nega tive results are presumptive. They do not preclude infection and should not be used as the sole basis for treatment decisions. Additional confirmatory testing by a molecular method should be considered. Performed By: #### C BC #### [facility] [address] [place] [address] Brittany Esteban TYPE AND SCREENon 10-05-2020 TYPE AND SCREEN Negative Normal [facility] Comment on above: Performed By: #### C BC #### [facility] [address] [place] [address] Eulalia CHLAMYDIA/GONOCOCCUS JUSTEN (SW AB/URINE/PAPon 09-14-2020 Chlamydia trachomatis, JUSTEN Negative Normal Negative [facility] Comment on above: Performed By: #### C T/NGNA #### [facility] [address] [place] [address] Brittany Esteban Neisseria gonorrhoeae, JUSTEN Negative Normal Negative [facility] Comment on above: Performed By: #### C T/NGNA #### [facility] [address] [place] [address] Brittany Esteban VAGINITIS/VAGINOSIS DNA PROB Shane 09-13-2020 Iwona species Negative Normal Negative [facility] Comment on above: Performed By: #### V AGINT #### [facility] [address] [place] [address] Brittany Esteban Gardnerella vaginalis Positive Abnormal Negative [facility] Comment on above: Performed By: #### V AGINT #### [facility] [address] [place] [address] Brittany Esteban Trichomonas vaginalis Negative Normal Negative [facility] Comment on above: Performed By: #### V AGINT #### [facility] [address] [place] [address] Brittany Esteban GROUP B STREP CULTUREon S. agalactiae Ag Ql (Unsp spec) Culture Observations: Negative for Group B Streptococcus Normal [facility] Comment on above: Performed By: #### C BC #### [facility] [address] [place] [address] Brittany Esteban GLUCOSE - 1HRon 07-07-2020 Glucose [Mass/Vol] 101 mg/dL Normal 74-106 [facility] Comment on above: Performed By: #### G LU1HR #### [facility] [address] [place] [address] [place]any[place]ston Esteban HEMOGRAM AND PLATELon 2020 Hematocrit (Bld) [Volume fraction] 34.1 % Critically low 36.0-48.0 [facility] Comment on above: Performed By: #### H H #### [facility] [address] [place] [address] Brittany Esteban Hemoglobin (Bld) [Mass/Vol] 11.4 g/dL Critically low 12.0-16.0 [facility] Comment on above: Performed By: #### H H #### [facility] [address] [place], [place] [address] Brittany Esteban MCH (RBC) [Entitic mass] 31.8 pg Normal 26.7-34.0 [facility] Comment on above: Performed By: #### H H #### [facility] [address] [place] [address] Brittany Esteban MCHC (RBC) [Mass/Vol] 33.4 g/dL Normal 29.9-35.2 [facility] Comment on above: Performed By: #### H H #### [facility] [address] [place] [address] Brittany Esteban MCV (RBC) [Entitic vol] 95.0 fL Normal 81.0-99.0 [facility] Comment on above: Performed By: #### H H #### [facility] [address] [place], [place] [address] Brittany Esteban PLT 173 103/ul Normal 150-450 [facility] Comment on above: Performed By: #### H H #### [facility] [address] [place], [place] [address] Brittany Esteban RBC 3.59 106/ul Critically low 4.20-5.40 [facility] Comment on above: Performed By: #### H H #### [facility] [address] [place], [place] [address] Brittanywinston Esteban WBC 9.6 103/ul Normal 4.0-11.0 [facility] Comment on above: Performed By: #### H H #### [facility] [address] [place], [place] [address] Brittany Esteban Vital Signs Date Time Vital Sign Value Performing Clinician Fredo adams 04-13-2023 18:52-0500 Body temperature 98.24 [degF] Tyler Uyen [facility] 04-13-2023 18:52-0500 Diastolic blood pressure 82 mm[Hg] Tyler Uyen [facility] 04-13-2023 18:52-0500 Heart rate 96 /min [facility] 04-13-2023 18:52-0500 Respiratory rate 18 /min [facility] 04-13-2023 18:52-0500 SaO2% (BldA) [Mass fraction] 97 % [facility] 04-13-2023 18:52-0500 Systolic blood pressure 130 mm[Hg] [facility] Encounters Encounter Date Encounter Type Care Provider Facility Start: 04-13-2023 End: 04-13-2023 Emergency department patient visit Tyler Qiu Facility[place] [place] Start: 04-13-2023 End: 04-13-2023 Emergency department patient visit Tyler Qiu [facility] Start: 05-23-2021 End: 05-23-[address] DELANEY SCOTT Facility:[facility] Start: 02-28-2021 End: 02-28-[address] DELANEY SCOTT Facility:[facility] Start: 02-06-2021 End: 02-07-2021 ambulatory MEHUL MORSE Facility:[facility] Start: 01-16-2021 End: 01-17-[address] DOCTOR VALENTINE Facility:[facility] Start: 12-22-2020 End: 12-23-2020 ambulatory BETTY MARTIN Facility:[facility] Start: 10-05-2020 End: 10-06-2020 Evaluation and management of inpatient DR FRANDY OBRIEN Facility:[facility] Start: 09-11-2020 End: 09-11-[address] FRANDY OBRIEN Facility:[facility] Start: 07-07-2020 End: 07-08-[address] FRANDY OBRIEN Facility:[facility] Procedures Date Procedure Procedure Detail Performing Clinician Start: 10-05-2020 Delivery of Products of Conception, External Approach DR FRANDY BORIEN Payers Date Payer Category Payer Unknown [id number] 1995 Unknown [id number] 2.16.84 [id number] 1995 Unknown [id number] 2.16.84 [id number] 1995 Unknown [id number] 2.16.84 [id number] 1995 Unknown [id number] 2.16.84 [id number] 1995 Unknown [id number] 2.16.84 [id number] 1995 Unknown [id number] 2.16.84 [id number] 1995 Unknown [id number] 2.16.84 [id number] 1995 Unknown [id number] 2.16.84 [id number] 1995 Unknown [id number] 2.16.84 [id number] 1995 Unknown [id number] 2.16.8 [id number] 1959 Medicaid [id number] 1959 Unknown [id number] 1959 Unknown [id number] Social History Date Type Detail Facility Tobacco smoking status No Smoking Status Entered [facility] Sex Assigned At Female [facility] Functional Status Date Assessment Result Facility 04-13-2023 Functional Status N/A [facility] Hospital Discharge instructions 04-13-2023 Note Date & Type Note Facility 04-13-2023 Hospital Discharg e instructions Patient Education 04/13/2023 20:18:04 Metatarsal Fracture Rehab Metatarsal Fracture Rehab After you break one of the long bones in your foot (metatarsal fracture), it is important to regain your flexibility, coordination, strength, and balance. This is especially important if you had a cast or boot. Ask your health care provider or physical therapist when you can start doing exercises at home. If doing any of these exercises causes pain, stop and contact your health care provider or physical therapist. Stretching exercises Exercise A: towel stretch 1.Sit on the floor with your legs straight out in front of you. 2.Loop a towel around the ball of your injured foot. 3.Use both hands to pull the ends of the towel, stretching your toes and foot toward your body. You should feel a stretch in the muscle in the back of your lower leg (calf). 4.Hold the stretch for 30 seconds. 5.Repeat times. Complete this exercise times a day. Exercise B: ankle alphabets 1.Sit with your injured foot raised off the ground (elevated). You can support your leg on pillows or on a footstool. Make sure your foot has room to move freely. 2.Move your injured foot to trace each letter of the alphabet in the air. Keep your hip and knee still. Make the letters as large as you can without pain. 3.Go through all of the letters from A to Z. 4.Repeat times. Complete this exercise times a day. Exercise C: calf stretch 1.Stand with both hands against a wall for support. 2.Bring your injured foot out straight behind you. Keep the front leg bent at the knee. 3.Keep the knee of your back leg straight and keep your heel on the floor. 4.Shift your weight toward the wall, making sure to keep the heel of your back leg down on the floor. You should feel a stretch in the calf of your back leg. 5.Hold the stretch for 30 seconds. 6.Repeat times. Complete this exercise times a day. You can also do this exercise with the knee of your back leg slightly bent for a deep calf stretch. Repeat the same steps but with your knee bent. Strengthening exercises Exercise A: marble pickup 1.Sit in a chair. Put 20 marbles on the floor in front of you. Put a bowl or cup on the floor near the marbles. 2.Use the toes of your injured foot to strip picker each marble one by one and place them in the bowl or cup. 3.Repeat times. Complete this exercise times a day. If you have only one marble, place two washcloths on the floor and move the marble between the washcloths. Exercise B: towel curls 1.Sit in a chair and place a small towel on the floor in front of you. 2.Use the toes of your injured foot to grab the towel and pull it toward you. Keep going until you have pulled the whole towel under your foot. 3.Repeat times. Complete this exercise times a day. To make this exercise more difficult, put a small weight, such as a filled water bottle or can of food, at the far end of the towel. Exercise C: resistance band calf strengthening 1.Sit on the floor or on your bed with your legs straight out in front of you. 2.Loop a resistance band around the ball of your injured foot. 3.Hold the free ends of the band with both hands. 4.Push down on the band with your foot, away from your body. Slowly release. 5.Repeat times. Complete this exercise times a day. Exercise D: resistance band samuel strengthening 1.Sit in a chair with your feet flat on the floor. 2.Loop a resistance band around your injured foot, just below your toes. 3.Bring the loose ends toward your other foot. Pull the band tight and step on it with your non-injured foot to hold it. 4.Keeping your heel down, lift your injured toes and foot up toward your samuel. Slowly release. 5.Repeat times. Complete this exercise times a day. Exercise E: calf raises 1.Stand behind a chair or at your countertop and use your hands to support you. 2.Lift up onto your toes and then slowly lower back down. 3.Repeat times. Complete this exercise times a day. To increase difficulty, lift your non-injured foot off the ground and rise up just on your injured foot. You can also perform this exercise with your toes and the ball of your foot on a step, with your heels over the step. Lift and lower as far as you can without pain. Balance exercises Exercise A: single leg stand 1.Stand close to a countertop or doorframe to hold onto if needed. Stand only on your injured foot. Don't let your big toe lift. 2.Hold this position for as long as you can. Repeat until you reach minutes total. To increase difficulty, close your eyes or stand on a soft surface like a pillow or couch cushion. Exercise B: star taps 1.Stand close to a countertop to hold onto if needed. Stand only on your injured foot with your knee slightly bent. Don't let your big toe lift. 2.Keep your upper body still and your weight on your injured foot. Tap the ground as far as you can to the front, back, and both sides with your other foot. Don't let your knee fall inward. 3.Repeat all directions times. Complete this exercise times a day. Contact a health care provider if you: Have an increase in foot pain during or after the exercises that does not improve with rest. Notice new or worsening numbness or tingling in your foot or toes. Get help right away if: Your injured foot or toes turn blue. This information is not intended to replace advice given to you by your health care provider. Make sure you discuss any questions you have with your health care provider. Document Revised: 08/02/2021 Document Reviewed: 08/02/2021 [employer] Patient Education 2022 [employer] 04/13/2023 20:18:04 Metatarsal Fracture Metatarsal Fracture A metatarsal fracture is a break in one of the five bones that connect the toes to the rest of the foot. This may also be called a forefoot fracture. A metatarsal fracture may be: A crack in the surface of the bone (stress fracture). This often occurs in athletes. A break all the way through the bone (complete fracture). The bone that connects to the little toe (fifth metatarsal) is most commonly fractured. Ballet dancers often fracture this bone. What are the causes? A metatarsal fracture may be caused by: Sudden twisting of the foot. Falling onto the foot. Something heavy falling onto the foot. Overuse or repetitive exercise. What increases the risk? This condition is more likely to develop in people who: Play contact sports. Do ballet. Have a condition that causes the bones to become thin and brittle (osteoporosis). Have a low calcium level. What are the signs or symptoms? Symptoms of this condition include: Pain that gets worse when walking or standing. Pain when pressing on the foot or moving the toes. Swelling. Bruising on the top or bottom of the foot. How is this diagnosed? This condition may be diagnosed based on: Your symptoms. Any recent foot injuries you have had. A physical exam. An X-ray of your foot. If you have a stress fracture, it may not show up on an X-ray, and you may need other imaging tests, such as: ?A bone scan. ? CT scan. ?MRI. How is this treated? Treatment depends on how severe your fracture is and how the pieces of the broken bone line up with each other (alignment). Treatment may involve: Wearing a cast, splint, or supportive boot on your foot. Using crutches, and not putting any weight on your foot. Having surgery to align broken bones (open reduction and internal fixation, ORIF). Physical therapy. Follow-up visits and X-rays to make sure you are healing. Follow these instructions at home: If you have a splint or a supportive boot: Wear the splint or boot as told by your health care provider. Remove it only as told by your health care provider. Loosen the splint or boot if your toes tingle, become numb, or turn cold and blue. Keep the splint or boot clean. If your splint or boot is not waterproof: ?Do not let it get wet. ?Cover it with a watertight covering when you take a bath or a shower. If you have a cast: Do not stick anything inside the cast to scratch your skin. Doing that increases your risk for infection. Check the skin around the cast every day. Tell your health care provider about any concerns. You may put lotion on dry skin around the edges of the cast. Do not put lotion on the skin underneath the cast. Keep the cast clean. If the cast is not waterproof: ?Do not let it get wet. ?Cover it with a watertight covering when you take a bath or a shower. Activity Do not use your affected leg to support your body weight until your health care provider says that you can. Use crutches as directed. Ask your health care provider what activities are safe for you during recovery, and ask what activities you need to avoid. Do physical therapy exercises as directed. Driving Do not drive or use heavy machinery while taking pain medicine. Do not drive while wearing a cast, splint, or boot on a foot that you use for driving. Managing pain, stiffness, and swelling If directed, put ice on painful areas: ?Put ice in a plastic bag. ?Place a towel between your skin and the bag. ?If you have a removable splint or boot, remove it as told by your health care provider. ?If you have a cast, place a towel between your cast and the bag. ?Leave the ice on for 20 minutes, 2 3 times a day. Move your toes often to avoid stiffness and to lessen swelling. Raise (elevate) your lower leg above the level of your heart while you are sitting or lying down. General instructions Do not put pressure on any part of the cast or splint until it is fully hardened. This may take several hours. Take [id number] and prescription medicines only as told by your health care provider. Do not use any products that contain nicotine or tobacco, such as cigarettes and e-cigarettes. These can delay bone healing. If you need help quitting, ask your health care provider. Do not take baths, swim, or use a hot tub until your health care provider approves. Ask your health care provider if you may take showers. Keep all follow-up visits as told by your health care provider. This is important. Contact a health care provider if you have: Pain that gets worse or does not get better with medicine. A fever. A bad smell coming from your cast or splint. Get help right away if you have: Any of the following in your toes or your foot, even after loosening your splint (if applicable): ?Numbness. ?Tingling. ?Coldness. ? Blue skin. Redness or swelling that gets worse. Pain that suddenly becomes severe. Summary A metatarsal fracture is a break in one of the five bones that connect the toes to the rest of the foot. Treatment depends on how severe your fracture is and how the pieces of the broken bone line up with each other (alignment). This may include wearing a cast, splint, or supportive boot, or using crutches. Sometimes surgery is needed to align the bones. Ice and elevate your foot to help lessen the pain and swelling. Make sure you know what symptoms should cause you to get help right away. This information is not intended to replace advice given to you by your health care provider. Make sure you discuss any questions you have with your health care provider. Document Revised: 08/02/2021 Document Reviewed: 08/02/2021 [employer] Patient Education 2022 [employer] Follow Up Care 04/13/2023 18:41:29 With:Aurelio Solares Address: [facility] AT [address] [place] [address]- [facility]: c/o [address] [place] [address]- When:04/16/2023 20:03:36 Comments:You may follow-up with podiatry for further evaluation of your left foot fracture. Continue to be nonweightbearing. Continue to rest, ice, compress, and elevate your affected joint to relieve inflammation and swelling. You may also take ibuprofen and Tylenol to help with pain. [facility] Clinical Note 02-06-2021 Note Date & Type Note Facility 02-06-2021 Note PROCEDURE: XR FOOT L T MIN 3 VIEWS COMPARISON: 01/16/2021 HISTORY: Pain in left foot FINDINGS: BONES:Stable complex fracture tuft of the first distal phalanx. The fracture planes are less evident on the current exam suggesting some interval healing however no bony bridging into the distal fragments is noted grade no new fracture. No dislocation SOFT TISSUES:Negative. No visible soft tissue swelling. EFFUSION:None visible. OTHER: Negative. IMPRESSION: Stable healing fracture tuft of the first distal phalanx as detailed above Electronically authenticated by: HEATHER LEDBETTER Date: 2021-02-06 11:37 [facility] Clinical Note 01-16-2021 Note Date & Type Note Facility 01-16-2021 Note PROCEDURE: XR FOOT L T MIN 3 VIEWS COMPARISON: 12/22/2020 HISTORY: Pain in left foot FINDINGS: BONES:Acute complex fracture involving the tuft of the first distal phalanx, stable in appearance with no significant bony bridging. No dislocation. SOFT TISSUES:Negative. No visible soft tissue swelling. EFFUSION:None visible. OTHER: Negative. IMPRESSION: Stable complex fracture tuft of the first distal phalanx Electronically authenticated by: HEATHER LEDBETTER Date: 2021-01-16 11:47 [facility] Clinical Note 12-22-2020 Note Date & Type Note Facility 12-22-2020 Note PROCEDURE: XR TOES L T MIN 2 V COMPARISON: None. HISTORY: Contusion of left great toe FINDINGS: BONES:Acute complex fracture of the first distal phalanx with a comminuted fracture of the tuft and a longitudinal fracture extending along the lateral diaphysis. No proximal intra-articular extension definitively seen. No dislocation SOFT TISSUES:Soft tissue swelling EFFUSION:None visible. OTHER: Negative. IMPRESSION: Complex fracture of first distal phalanx Electronically authenticated by: HEATHER LEDBETTER Date: 2020-12-22 16:24 [facility] Evaluation + Plan note Note Date & Type Note Facility Evaluation + Plan note No data available for this section [facility] Progress note Note Date & Type Note Facility Progress note No data available for this section [facility] Summary Purpose Family History No Family History Records Found No data available for this section No Family History Records Found Advance Directives No Advanced Directives Records FoundNo Advanced Directives Records Found Additional Source Comments INFORMATION SOURCE (unrecogn ized section and content) DATE CREATED AUTHOR 05/28/[address] [facility] pithi DATE CREATED AUTHOR 'S ORGANIZ ATION 04/26/2023 [facility] FOR RECORDS PERTAINING TO PATIENTS WHO ARE OR HAVE BEEN ENROLLED IN A CHEMICAL DEPENDENCY/SUBSTANCEABUSE PROGRAM, SOME INFORMATION MAY BE OMITTED. This clinical summary was aggregated from multiple sources. Caution should be exercised in using it in the provision of clinical care. This summary normalizes information from multiple sources, and as a consequence, information in this document may materially change the coding, format and clinical context of patient data. In addition, data may be omitted in some cases. CLINICAL DECISIONS SHOULD BE BASED ON THE PRIMARY CLINICAL RECORDS. [facility]. provides no warranty or guarantee of the accuracy or completeness of information in this document.
== END 2023-05-08 14:13 | disposition home or self-care (01) ==
LOC: RAD 14:12
PROVIDERS: PCP Family Medicine; Visit Provider Podiatrist Foot & Ankle Surgery
DX: S92.352D Displaced fracture of fifth metatarsal bone, left foot, subsequent encounter for fracture with routine healing (principal)
CPT/HCPCS: 73630